=== PATIENT | male | born 1965 | race Caucasian/White ===

== ENCOUNTER 2018-10-23 21:00 | Emergency (ER) | payer OTHER ==
[~2018-10-23] VITALS: Ht 190.5 cm; Wt 121.6 kg
[2018-10-23] MEDS ORDERED: XARELTO15 MG PO (23:54)
[2018-10-24 00:21] VITALS: BP 181/122
== END 2018-10-24 00:27 | disposition home or self-care (01) ==
LOC: M.ERS 21:00
DX: I82.4Z2 Acute embolism and thrombosis of unspecified deep veins of left distal lower extremity (principal)

== ENCOUNTER → 2019-02-08 | Outpatient (CLI) | payer OTHER ==
[~2019-02-08] MED LIST: XARELTO15 MG PO
== END ==
LOC: M.ULTRA 07:07
DX: M79.89 Other specified soft tissue disorders (principal); M79.605 Pain in left leg